=== PATIENT | female | born 1975 ===

== ENCOUNTER → 2016-11-11 | Outpatient (REF) | LOC: WSOH 12:43 | DX: Z02.89 Encounter for other administrative examinations (principal) ==

== ENCOUNTER → 2016-11-15 | Outpatient (REF) | LOC: WSOH 12:30 | DX: Z02.89 Encounter for other administrative examinations (principal) ==

== ENCOUNTER → 2016-11-21 | Outpatient (REF) | LOC: WSOH 09:43 | DX: Z00.00 Encounter for general adult medical examination without abnormal findings (principal) ==

== ENCOUNTER → 2016-11-23 | Outpatient (REF) | LOC: WSOH 10:45 | DX: Z23 Encounter for immunization (principal) ==

== ENCOUNTER → 2016-12-14 | Outpatient (REF) | LOC: WSOH 16:30 | DX: Z02.89 Encounter for other administrative examinations (principal) ==

== ENCOUNTER → 2016-12-30 | Outpatient (REF) | LOC: WSOH 15:03 | DX: Z02.89 Encounter for other administrative examinations (principal) ==